=== PATIENT | female | born 1950 | race Caucasian/White ===

== ENCOUNTER 2022-02-11 16:40 | Emergency (ER) | payer OTHER ==
[2022-02-11] MEDS ORDERED: KETOROLAC TROMETHAMINE 60 MG/2 ML VIAL IM ONE (16:53)
[2022-02-11] MEDS ORDERED: ACETAMINOPHEN 325 MG TABLET (FP) PO ONE (16:53)
[2022-02-11] MEDS ORDERED: METHOCARBAMOL 500 MG TABLET PO ONE (16:53)
[2022-02-11 17:07] VITALS: BP 128/93; PULSE 90; RESP 20; TEMP 99; BMI 30.4
[2022-02-11] MEDS ORDERED: METHOCARBAMOL 500 MG TABLET ONE ×2 (17:17→17:18)
[2022-02-11] MEDS ORDERED: ACETAMINOPHEN 325 MG TABLET (FP) ONE (17:17)
[2022-02-11] MEDS ORDERED: KETOROLAC TROMETHAMINE 30 MG/1 ML VIAL ONE (17:18)
== END 2022-02-11 18:19 | disposition home or self-care (01) ==
LOC: FER 16:40
PROC: 3E0233Z Introduction of Anti-inflammatory into Muscle, Percutaneous Approach (ICD-10-PCS; principal; 2022-02-11)
DX: M79.602 Pain in left arm (principal)
CPT/HCPCS: 93005; 99284-25